=== PATIENT | male | born 1965 | race Caucasian/White ===

== ENCOUNTER → 2017-11-06 | Outpatient (CLI) | payer BC | END | disposition home or self-care (01) | LOC: KCIC MRI 12:06 | DX: M19.042 Primary osteoarthritis, left hand (principal) | CPT/HCPCS: 73221 ==

== ENCOUNTER 2018-10-17 00:32 | Emergency (ER) | payer OTHER, BC ==
[~2018-10-17] VITALS: Ht 182.9 cm; Wt 85.7 kg
[2018-10-17 01:02] VITALS: BP 151/98
--- NOTE | 2018-10-17 01:35 | PHYS DOC ---
Past Medical History Past Medical History: MRSA Past Surgical History: Cholecystectomy, Other Additional Past Surgical Histo: CYST REMOVAL; LT KNEE X4, RT KNEE, RT ANKLE, LT ELBOW X2 Alcohol Use: Rarely Drug Use: None Adult General Chief Complaint Chief Complaint: LACERATION/AVULSION HPI HPI Patient is a 53 year old R handed male who presents with a crush injury with laceration to right ring finger while at work. Injury occurred prior to ED arrival. Patient was moving a metal roller-bar that fell while he was holding it striking his left hand off of the ground. No other symptoms or complaints. [] Review of Systems Review of Systems ROS as per HPI. All other systems were reviewed and found to be within normal limits, except as documented in this note. Current Medications Current Medications Current Medications Medications (Trade) Dose Ordered Sig/Shanita Start Time Stop Time Status Last Admin Dose Admin Lidocaine HCl (Lidocaine 1% 20ml Vial) 20 ml 1X ONCE 10/17/18 02:45 10/17/18 02:46 DC 10/17/18 02:39 20 ML Allergies Allergies Allergies Coded Allergies Type Severity Reaction Last Updated Verified No Known Drug Allergies 10/17/18 No Physical Exam Physical Exam Constitutional: Well developed, well nourished, no acute distress, non-toxic appearance. [] Extremities: 3 cm cull thickness laceration to volar surface of the proximal phalanx of the right fourth finger with abrasion over dorsal surface of proximal phalanx. Wound is clean, no joint involvement. Bleeding is controlled. No deformities noted. [] Neurologic: Alert and oriented X 3, normal motor function, normal sensory function, no focal deficits noted. [] Psychologic: Affect normal, judgement normal, mood normal. [] Current Patient Data Vital Signs Vital Signs Date Time Temp Pulse Resp B/P (MAP) Pulse Ox O2 Delivery O2 Flow Rate FiO2 10/17/18 01:02 98.5 72 18 151/98 (115) 98 Room Air 98.5 EKG EKG [] Radiology/Procedures Radiology/Procedures [Laceration repair procedure note: Wound was copiously irrigated with tap water, and explored. No foreign bodies were noted to be present. 3 ML's of 1% lidocaine checked into wound margins. Wound was closed with 6, 4�0 simple interrupted Ethilon sutures with good wound margin approximation. Tetanus was confirmed to be up-to-date. Typical wound care instructions provided ] Course & Med Decision Making Course & Med Decision Making Pertinent Labs and Imaging studies reviewed. (See chart for details) [Wound cleansed and closed and bandaged. History of MRSA. Will place on antibiotics. Typical wound care instructions provided. Recommend work comp follow-up] Cris Disclaimer Dragon Disclaimer This electronic medical record was generated, in whole or in part, using a voice recognition dictation system. Departure Departure Impression: Primary Impression: Laceration of right ring finger Disposition: HOME, SELF-CARE Condition: GOOD Referrals: COLLIN GARZA MD (PCP) Patient Instructions: Laceration Care, Adult Scripts Clindamycin Hcl (CLINDAMYCIN HCL) 300 Mg Capsule 1 CAP PO TID, #21 CAP Prov: DIEGO BENITO DO 10/17/18 DIEGO BENITO DO Oct 17, 2018 01:35
[2018-10-17] MEDS ORDERED: LIDOCAINE 1% Multi-Dose 20 ML VIAL. INJ ONE (02:45)
[2018-10-17] MEDS ORDERED: CLIN300C8 PO (04:08)
--- NOTE | 2018-10-17 08:01 | RAD ---
Exam performed: X-ray right fourth digit. HISTORY: Fourth finger injury, laceration from crush injury. DATE OF SERVICE: 08/17/2018. COMPARISON: None available FINDINGS: Single AP views and oblique and lateral view of the fourth digit is obtained. Normal alignment is preserved. There is no acute fracture or dislocation. No soft tissue swelling or foreign body seen. IMPRESSION: Negative exam. Electronically signed by: Susan Bowser MD (10/17/2018 7:58 AM) [facility]
== END 2018-10-17 04:30 | disposition home or self-care (01) ==
LOC: ER 00:32
DX: S61.211A Laceration without foreign body of left index finger without damage to nail, initial encounter (principal); W22.8XXA Striking against or struck by other objects, initial encounter; Y93.89 Activity, other specified; Y92.89 Other specified places as the place of occurrence of the external cause; Y99.8 Other external cause status
CPT/HCPCS: 12002; 73140; 99284